=== PATIENT | female | born 1965 | race Two or more races ===

== ENCOUNTER 2024-12-26 20:54 | Emergency (ER) | payer MEDICARE, MEDICAID ==
[~2024-12-26] VITALS: Ht 165.1 cm; Wt 77.7 kg
[2024-12-26] MEDS: PHENAZOPYRIDINE HCL 100 MG TAB PO ONE (22:35)
[2024-12-26 22:38] LABS: Urine Protein, UAD Negative (Negative)
[2024-12-26] MEDS ORDERED: PHEN-1044 PO (22:55)
--- NOTE | 2024-12-26 22:56 | ED.PDOC ---
General HPI Comments This patient is a morbidly obese 59-year-old female who arrives the ED today with complaints of urinary discomfort for the past nearly two weeks. Patient states she was seen by a provider and prescribed Bactrim for a few days at the inception of her urinary discomfort. Patient states it subsequent to that she received another round of Bactrim from another provider. Patient arrives today with continued complaints of urinary discomfort. 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 Patient states she has a bladder mass was evaluated by PET scan less than one month ago. Vital signs were stable. Chief Complaint: Urinary Time Seen by MD: 21:03 Reviewed notes: Nurses Notes Allergies: Coded Allergies: Diphenhydramine (Verified Allergy, Unknown, 12/26/24) Iodine (Verified Allergy, Unknown, 12/26/24) Latex (Verified Allergy, Unknown, 12/26/24) Information Source: Patient Mode of Arrival: Ambulatory Severity: Moderate Timing: Weeks Duration: Since onset Prehospital treatment: None Onset: Spontaneous Symptoms: Dysuria, Frequency History of: Other (History of bladder cancer and bladder mass) Location: Abdomen associated signs and symptoms: Abdominal Pain, Dysuria, Urgency Past Medical History PAST MEDICAL HISTORY: Cancer Past Medical History (Other): 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 Surgical History: Denies all surgeries [employer]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 Family History Family History: Reviewed,noncontributory to illness, No family hx of Cancer, No family hx of DM, No family hx of Heart tricia, No family hx of HTN, No family hx ofKidney tricia, No family hx of Liver tricia, No family hx of Lung tricia, No family hx of Stroke Social History Smoker: Non-Smoker Alcohol: Denies ETOH Use Drugs: Denies Drug Use Lives In: Home Constitutional: denies: chills, diaphoresis, fatigue, fever, malaise, sweats, weakness, others EENTM: denies: blurred vision, double vision, ear bleeding, ear discharge, ear drainage, ear pain, ear ringing, eye pain, eye redness, hearing loss, mouth pain, mouth swelling, nasal discharge, nose bleeding, nose congestion, nose pain, photophobia, tearing, throat pain, throat swelling, voice changes, others Respiratory: denies: cough, hemoptysis, orthopnea, SOB at rest, shortness of breath, SOB with excertion, stridor, wheezing, others Cardiovascular: denies: chest pain, dizzy spells, diaphoresis, Dyspnea on exertion, edema, irregular heart beat, left arm pain, lightheadedness, palpitations, PND, syncope, others Gastrointestinal: denies: abdomen distended, abdominal pain, blood streaked bowels, constipated, diarrhea, dysphagia, difficulty swallowing, hematemesis, melena, nausea, poor appetite, poor fluid intake, rectal bleeding, rectal pain, vomiting, others Genitourinary: reports: burning, dysuria, frequency; denies: abnormal vagina bleeding, dyspareunia, flank pain, hematuria, incontinence, pain, , vagina discharge, urgency, others Neurological: denies: dizziness, fainting, headache, left sided numbness, left sided weakness, numbness, paresthesia, pre-existing deficit, right sided numbness, right sided weakness, seizure, speech problems, tingling, tremors, weakness, others Musculoskeletal: denies: back pain, gout, joint pain, joint swelling, muscle pain, muscle stiffness, neck pain, others Integumetry: denies: bruises, change in color, change in hair/nails, dryness, laceration, lesions, lumps, rash, wounds, others Allergic/Immunocompromised: denies: Difficulty Healing, Frequent Infections, Hives, Itching, others Hematologic/Lymphatic: denies: anemia, blood clots, easy bleeding, easy br uising, swollen glands, others Endocrine: denies: excessive hunger, excessive sweating, excessive thirst, excessive urination, flushing, intolerance to cold, intolerance to heat, unexplained weight gain, unexplained weight loss, others Psychiatric: denies: anxiety, bipolar disorder, depression, hopeless, panic disorder, schizophrenia, sleepless, suicidal, others Physical Exam General Appearance: Moderate Distress (Moderate distress due to urinary discomfort. Patient declined any pain medication while at the facility.), Normal HEENT: Normal ENT Inspection, Pharynx Normal, TMs Normal Neck: Full Range of Motion, Non-Tender, Normal, Normal Inspection Respiratory: Chest Non-Tender, Lungs Clear, No Accessory Muscle Use, No Respiratory Distress, Normal Breath Sounds Cardiovascular: No Edema, No JVD, No Murmur, No Gallop, Normal Peripheral Pulses, Regular Rate/Rhythm Breast Exam: Deferred Gastrointestinal: Other (Diffuse bilateral pelvic tenderness to palpation extending towards the suprapubic region. No pulsatile masses. Difficult to assess due to body habitus.) Genitalia: Deferred Pelvic: Deferred Rectal: Deferred Extremities: No calf tenderness, Normal capillary refill, Normal inspection, Normal range of motion, Non-tender, No pedal edema Neurologic: Alert, No Motor Deficits, Normal Affect, Normal Mood, No Sensory Deficits Cerebellar Function: Normal Reflexes: Normal Skin: Dry, Normal Color, Warm Lymphatic: No Adenopathy Was a procedure done? Was a procedure done?: No Differential Diagnosis Kidney stone (Female): Other (UTI, kidney stone, metastasizing cancer, bladder mass) X-Ray, Labs, Meds, VS Vital Signs Date Time Temp Pulse Resp B/P (MAP) Pulse Ox O2 Delivery O2 Flow Rate FiO2 12/26/24 21:15 97.9 122 19 151/71 (97) 95 97.9 Lab Test 12/26/24 22:00 Range/Units Urine Color Light-yellow Yellow Urine Clarity Clear Clear Urine pH 5.0 5.0-9.0 Urine Specific Bryant 1.011 1.001-1.035 Urine Protein Negative Negative Urine Ketones Negative Negative Urine Blood Negative Negative /uL Urine Nitrite Negative Negative Urine Bilirubin Negative Negative Urine Urobilinogen Normal Negative mg/dL Urine Leukocyte Esterase Trace Negative /uL Urine RBC <1 0 - 4 /hpf Urine Microscopic WBC 2 0-5 /HPF Urine Squamous Epithelial Cells Few <5 /hpf Urine Bacteria None seen None Seen /hpf Urine Glucose Normal Normal mg/dL Current Medications Medications (Trade) Dose Ordered Sig/Destinee Route Start Time Stop Time Status Last Admin Phenazopyridine HCl (Pyridium Tablet) 100 mg ONCE ONCE PO 12/26/24 21:15 12/26/24 21:16 DC 12/26/24 22:35 X-Ray, Labs, Meds, VS Comment All studies performed the ED were evaluated by me personally. Advised patient that her urinalysis was unremarkable for any urinary tract infection. Due to the extensive and prolonged studies related to the patient's pelvic concerns, I advised the patient to follow up with her primary care and oncologist for continued evaluation and management of her developing urinary discomfort issues. Patient states she has pain medication at home but does not want to take it. Advised patient that she should discuss all management of her concerns with the primary care provider and oncologist. Time of 1ST Reevaluation: 22:54 Reevaluation 1ST: Improved Consultation: PCP Patient Education/Counseling: Diagnosis, Treatment Family Education/Counseling: Diagnosis, Treatment SEPSIS Sepsis Screen Date sepsis recognized/suspect: Dec 26, 2024 Time Sepsis recognized/suspect: 2114 Recent Procedure: No On Antibiotic Therapy: No Respiratory Rate >20: No Heart Rate >90: Yes Temp<36 C (96.8 F) or >38.3 C: No SBP <90 or MAP <65 mmHG: No New Acute Mental Status Change: No Is the patient on CPAP, BIPAP,: No Vital Signs Date Time Temp Pulse Resp B/P (MAP) Pulse Ox O2 Delivery O2 Flow Rate FiO2 12/26/24 21:15 97.9 122 19 151/71 (97) 95 97.9 Medications Medications Dose Ordered Sig/Destinee Route Start Time Stop Time Status Last Admin Dose Admin Phenazopyridine HCl 100 mg ONCE ONCE PO 12/26/24 21:15 12/26/24 21:16 DC 12/26/24 22:35 Departure 1 Departure Time of Disposition: 22:55 Impression: Primary Impression: Dysuria Disposition: HOME / SELF CARE / HOMELESS Condition: Stable Additional Instructions: Advised patient utilize medication as needed for symptomatic relief. Patient should follow up with the primary care provider and oncologist for continued evaluation of the long-term management of multiple bladder and pelvic concerns. e-Prescriptions Phenazopyridine HCl (Phenazopyridine Hydrochlo) 100 Mg Tab 100 MG PO Q8HP PRN, #15 TAB Prov: RAMESH ENCARNACION PAC 12/26/24 Discharged With: Self, Friend Critical Care Note Critical Care Time?: No Stability Stability form required: No Heart Score Heart Score: Heart Score Response (Comments) Value History N/A 0 EKG N/A 0 Age N/A 0 Risk Factors N/A 0 Troponin N/A 0 Total 0 RAMESH ENCARNACION PAC Dec 26, 2024 22:56
[2024-12-26 23:14] VITALS: BP 103/67; PULSE 103; RESP 17; TEMP 98.2; O2SAT 95
== END 2024-12-26 23:20 | disposition home or self-care (01) ==
LOC: ER 20:54
DX: R30.0 Dysuria (principal); C56.3 Malignant neoplasm of bilateral ovaries; Z85.51 Personal history of malignant neoplasm of bladder; Z88.8 Allergy status to other drugs, medicaments and biological substances
CPT/HCPCS: 81001

== ENCOUNTER 2025-01-23 10:50 | Outpatient (CLI) | payer MEDICARE, MEDICAID ==
[~2025-01-23 10:50] MED LIST: PHEN-1044 PO
== END 2025-01-23 17:00 | disposition home or self-care (01) ==
LOC: Rad HDHVI 10:50
PROVIDERS: ATTEND Internal Medicine Cardiovascular Disease
DX: I35.1 Nonrheumatic aortic (valve) insufficiency (principal); I10 Essential (primary) hypertension
CPT/HCPCS: 93306

== ENCOUNTER 2025-02-26 16:23 | Outpatient (CLI) | payer MEDICARE, MEDICAID | END 2025-02-26 17:00 | disposition home or self-care (01) | LOC: Rad HDHVI 16:23 | PROVIDERS: ATTEND Internal Medicine Cardiovascular Disease | DX: M79.661 Pain in right lower leg (principal); M79.662 Pain in left lower leg | CPT/HCPCS: 93970 ==